=== PATIENT | male | born 1950 | race Caucasian/White ===

== ENCOUNTER → 2016-11-08 | Outpatient (CLI) | payer OTHER | LOC: BHFA 11:00 | PROVIDERS: ATTEND Internal Medicine Interventional Cardiology | DX: I25.10 Atherosclerotic heart disease of native coronary artery without angina pectoris (principal); E78.5 Hyperlipidemia, unspecified ==

== ENCOUNTER → 2017-10-07 | Outpatient (CLI) | payer OTHER | LOC: BHFA 10:30 | PROVIDERS: ATTEND Internal Medicine Cardiovascular Disease | DX: R55 Syncope and collapse (principal) ==

== ENCOUNTER 2017-11-17 08:44 | Day surgery (SDC) | payer OTHER ==
[2017-11-17] MEDS ORDERED: LIDOCAINE 1% 300 MG/30 ML SDV SC ONE (08:45)
--- NOTE | 2017-11-17 10:14 | PDHPUP ---
History & Physical Update H&P update statement: This history and physical update is based on an assessment of the patient which was completed after admission or registration (within 24 hours), but prior to the surgery/procedure. H&P update: H&P reviewed & patient examined, no change in patient's condition since H&P completed
--- NOTE | 2017-11-17 10:15 | PDPROPOC ---
Sedation Plan of Care Sedation Plan of Care: vital signs stable, mental status noted, patient educated of risks, benefits, alternatives ASA Classification: ASA 3 Planned drugs: other Mallampati Reference Image:
--- NOTE | 2017-11-18 18:31 | EPPROC ---
Electrophysiology Procedure Note: Procedure: [facility] Confirm implant Indication: Syncope of unknown etiology Procedure: Parts prepared and draped. LA given. Incision placed. Using usual technique, St [facility]an Confirm ILR placed. Staple placed. Dry sterile dressing placed. Pt left CVC in stable condition Conclusion: Successful ILR implant
== END 2017-11-17 10:34 | disposition home or self-care (01) ==
LOC: FCATH 08:44
PROVIDERS: ATTEND Internal Medicine Cardiovascular Disease
PROC: 0JH63PZ Insertion of Cardiac Rhythm Related Device into Chest Subcutaneous Tissue and Fascia, Percutaneous Approach (ICD-10-PCS; principal; 2017-11-17)
DX: R55 Syncope and collapse (principal); I10 Essential (primary) hypertension; I25.10 Atherosclerotic heart disease of native coronary artery without angina pectoris; E78.5 Hyperlipidemia, unspecified; E78.00 Pure hypercholesterolemia, unspecified; H90.A11 Conductive hearing loss, unilateral, right ear with restricted hearing on the contralateral side; Z96.21 Cochlear implant status
CPT/HCPCS: C1764